=== PATIENT | male | born 1965 | race African-American/Black ===

== ENCOUNTER 2023-09-08 06:50 | Day surgery (SDC) | payer OTHER ==
[2023-09-04 15:22] LABS: Absolute Eosinophils 0.3 K/uL (0-0.5); Absolute Lymphocytes (CBC) 1.9 K/uL (0.7-4.9); Absolute Monocytes 0.7 K/uL (0.1-1.3); Absolute Neutrophil 4.7 K/uL (1.8-8.0); Basophils % 0.3 % (0-1.3); Eosinophils % 4.1 % (0-4.4); Hematocrit 35.8 % (39.6-49.0); Hemoglobin 11.4 g/dL (13.6-17.9); Lymphocytes % 24.5 % (15.3-44.8); MCH 24.4 pg (27.0-35.0); MCHC 31.8 g/dL (32.0-36.0); MCV 76.8 fL (80-100); MPV 8.4 fL (7.6-11.3); Monocytes % 9.4 % (3.3-12.3); Neutrophils % 61.7 % (41.7-73.7); Nucleated Red Blood Cells % 0.1 % (0-0); Platelets 254 thou/uL (152-406); RBC Red Blood Cell Count 4.66 M/uL (4.33-5.43); Red Cell Distribution Width 14.5 % (12.1-15.2)
[2023-09-04 15:27] LABS: Anion Gap 4.3 mEq/L (5.0-15.0); Potassium 4.3 mEq/L (3.5-5.1)
[2023-09-04 15:53] LABS: Blood Morphology Comment NOT SEEN (NOT SEEN); Platelet Estimate ADEQ; White Blood Cell Scan OK (OK)
--- NOTE | 2023-09-07 14:47 | EKG ---
Test Date: 2023-09-04 Test Time: 14:02:53 [facility] Owner: ALLEY MEASUREMENT RESULTS: Intervals: Rate: 102 AL: 174 QRSD: 74 QT: 342 QTc: 445 [place]: P: 83 AL: 174 QRS: 77 T: 79 INTERPRETIVE STATEMENTS: Sinus tachycardia Otherwise normal ECG Compared to ECG 06/05/2017 08:07:17 Sinus rhythm no longer present Electronically Signed On 09-07-23 14:40:06 CDT by Ming Mclaughlin
[2023-09-08] MEDS: Ringers Lactate 1,000 ML IV ONE (07:15)
[2023-09-08 07:29] VITALS: O2SAT 100
[2023-09-08] MEDS ORDERED: MIDAZOLAM HCL 2 MG/2 ML INJ ONE (07:54)
[2023-09-08] MEDS ORDERED: propofoL 200 MG/20 ML VIAL IV ONE (07:54)
[2023-09-08] MEDS ORDERED: LIDOCAINE 1% MPF 2 ML AMPULE ONE (07:54)
[2023-09-08 09:59] VITALS: BP 140/90; TEMP 97.4
== END 2023-09-08 09:50 | disposition home or self-care (01) ==
LOC: OR 06:50
PROVIDERS: ATTEND Internal Medicine Gastroenterology
PROC: 0D798ZZ Dilation of Duodenum, Via Natural or Artificial Opening Endoscopic (ICD-10-PCS; principal; 2023-09-08 08:30)
DX: K31.5 Obstruction of duodenum (principal); K26.9 Duodenal ulcer, unspecified as acute or chronic, without hemorrhage or perforation; K29.50 Unspecified chronic gastritis without bleeding
CPT/HCPCS: 93005; 85025; 80048; 36415; 43245; J2704; J2250; J7120